=== PATIENT | male | born 1960 | race Caucasian/White ===

== ENCOUNTER → 2021-05-01 | Outpatient (CLI) | payer OTHER ==
[~2021-05-01] MED LIST: HYDROCODON-ACE1 EAC2 PO; LISINOPRIL-HCT1 EACH PO; METHOCARBAMOL500 MG PO; MULTIVITAMIN; NEXIUM20 MG PO; SIMVASTATIN10 MG PO; TRAMADOL HCL50 MG PO; VITAMIN D
[2021-05-01 13:25] LABS: RED BLOOD COUNT 5.07 M/UL (4.20-5.50); WHITE BLOOD COUNT 7.2 K/UL (4.5-11.0)
[2021-05-01 13:42] LABS: BUN/CREATININE RATIO 18 (0-10)
== END ==
LOC: OPSV2 04-30 09:30 → EDSTATUS 12:00 → OPSV2 12:04
PROVIDERS: Orthopaedic Surgery
DX: Z01.818 Encounter for other preprocedural examination (principal); M54.16 Radiculopathy, lumbar region; M48.061 Spinal stenosis, lumbar region without neurogenic claudication; R94.31 Abnormal electrocardiogram [ECG] [EKG]
CPT/HCPCS: 36415; 71046; 80048; 85027; 85610; 85730; 93005

== ENCOUNTER → 2021-05-07 | Day surgery (SDC) | payer OTHER ==
[~2021-05-07] VITALS: Ht 185.4 cm; Wt 100.2 kg
== END | disposition home or self-care (01) ==
LOC: OR 06:06
DX: M48.061 Spinal stenosis, lumbar region without neurogenic claudication (principal); M47.26 Other spondylosis with radiculopathy, lumbar region; I10 Essential (primary) hypertension; E78.5 Hyperlipidemia, unspecified; I25.9 Chronic ischemic heart disease, unspecified; K21.9 Gastro-esophageal reflux disease without esophagitis
CPT/HCPCS: 72110; 76000; C1781; J0690; J1040; J1100; J2001; J2250; J2405; J2704; J2710; J3010; J3370; J7040; J7120

== ENCOUNTER 2022-07-16 21:44 | Emergency (ER) | payer SELFPAY | END 2022-07-17 02:12 | disposition home or self-care (01) | LOC: ER1 21:44 | DX: S63.284A Dislocation of proximal interphalangeal joint of right ring finger, initial encounter (principal); I10 Essential (primary) hypertension; W23.1XXA Caught, crushed, jammed, or pinched between stationary objects, initial encounter; Y92.89 Other specified places as the place of occurrence of the external cause; Y99.0 Civilian activity done for income or pay | CPT/HCPCS: 26770; 73130; 99283 ==